=== PATIENT | female | born 1960 | race Caucasian/White ===

== ENCOUNTER 2020-04-17 08:10 | Day surgery (SDC) | payer OTHER ==
[2020-04-17 08:22] LABS: Urine Appearance CLEAR; Urine Bilirubin NEGATIVE (NEG); Urine Blood NEGATIVE (NEG); Urine Color YELLOW; Urine Glucose NEGATIVE (NEG); Urine Protein NEGATIVE (NEG); Urine Specific Gravity 1.015 (1.005-1.030); Urine Urobilinogen 0.2 mg/dL (0.2-1.0)
[2020-04-17 08:22] LABS: Basophils % 0.5 % (0-1.3); Hematocrit 41.8 % (36.0-45.0); Lymphocytes % 21.7 % (15.3-44.8); RBC Red Blood Cell Count 4.74 M/uL (3.86-4.86)
[2020-04-17] MEDS ORDERED: EPINEPHRINE/PF 1 MG/ML AMP ONE (08:27)
[2020-04-17] MEDS ORDERED: NS 0.9% VIAL 40 ML ONE (08:27)
[2020-04-17] MEDS ORDERED: GENTAMICIN SULF 80 MG/2ML INJ ONE (08:27)
[2020-04-17] MEDS ORDERED: CEFAZOLIN SODIUM 1 GM/VIAL ONE (08:27)
[2020-04-17] MEDS ORDERED: Mastisol Adhesive Liq ONE (08:28)
[2020-04-17] MEDS ORDERED: Ringers Lactate 1,000 ML IV ONE ×4 (08:28→11:01)
[2020-04-17] MEDS ORDERED: NA CHLORIDE 0.9% 2,000 ML ONE (08:28)
[2020-04-17] MEDS ORDERED: LIDOCAINE 1% W/EPI 1:100,000 MDV 20 ML VIAL ONE (08:29)
[2020-04-17] MEDS ORDERED: BACITRACIN 50000 UNIT VIAL ONE (08:29)
[2020-04-17] MEDS ORDERED: CEFAZOLIN/SWI 1gm 1 GM/10 ML SYR ONE (08:33)
[2020-04-17] MEDS ORDERED: SCOPOLAMINE HYDROBROMIDE PATCH TD ONE (08:33)
--- NOTE | 2020-04-17 08:37 | RAD REPORT ---
EXAM DESCRIPTION: RAD - Chest Pa And Lat (2 Views) - 04/17/2020 8:09 am CLINICAL HISTORY: Preop Chest pain. COMPARISON: No comparisons FINDINGS: The lungs are clear. The heart is normal in size. No displaced fractures. IMPRESSION: No acute or concerning finding suspected.
[2020-04-17 08:38] LABS: Urine Microscopic Reflex ORDER UMIC
[2020-04-17 09:00] LABS: Urine Bacteria <20 /HPF (<20); Urine Culture Reflex Order REFLEXED; Urine RBC <5 /HPF (NONE SEEN)
[2020-04-17] MEDS ORDERED: FENTANYL CITR 100 MCG/2 ML ONE ×2 (09:09→14:22)
[2020-04-17] MEDS ORDERED: dexAMETHasone 10 MG/ML VIAL ONE (09:09)
[2020-04-17] MEDS ORDERED: propofoL 200 MG/20 ML VIAL IV ONE (09:09)
[2020-04-17] MEDS ORDERED: MIDAZOLAM HCL 2 MG/2 ML INJ ONE (09:09)
[2020-04-17] MEDS ORDERED: KETOROLAC 30 MG/ML INJ ONE (09:10)
[2020-04-17] MEDS ORDERED: ROCURONIUM 50 MG/5 ML VIAL IV ONE (09:10)
[2020-04-17] MEDS ORDERED: ONDANSETRON 4 MG/2 ML VIAL ONE (09:10)
[2020-04-17] MEDS ORDERED: LIDOCAINE 2% MPF 5 ML VIAL ONE (09:10)
[2020-04-17] MEDS ORDERED: LIDOCAINE 1% W/EPI 1:100,000 MDV 50 ML VIAL ONE (09:12)
--- NOTE | 2020-04-17 11:51 | EKG ---
Test Date: 2020-04-17 Test Time: 06:46:56 Physics And Astronomy Professor: SHRUTHI MEASUREMENT RESULTS: Intervals: Rate: 53 WV: 148 QRSD: 86 QT: 432 QTc: 405 [place]: P: 47 WV: 148 QRS: 66 T: 56 INTERPRETIVE STATEMENTS: Sinus bradycardia Otherwise normal ECG No previous ECG available for comparison Electronically Signed On 04-17-20 11:50:07 CDT by Shiva Sharpe
[2020-04-17] MEDS ORDERED: NS 0.9% VIAL 20 ML ONE (11:56)
[2020-04-17] MEDS ORDERED: VECURONIUM 10 MG/VIAL IV ONE (11:56)
[2020-04-17] MEDS ORDERED: MEPERIDINE HCL 25 MG/ML SYR ONE (12:02)
[2020-04-17] MEDS ORDERED: GLYCOPYRROLATE 0.2 MG/ML SYR ONE (13:49)
[2020-04-17] MEDS ORDERED: NEOSTIGMINE 1 MG/ML -5 ML ONE (13:54)
[2020-04-17] MEDS: HYDROMORPHONE HCL 1 MG/ML INJ ONE ×2 (15:20→15:25)
[2020-04-17] MEDS ORDERED: PROMETHAZINE INJ 25 MG/ML AMP ONE (15:24)
[2020-04-17 15:49] VITALS: TEMP 97.9
[2020-04-17] MEDS ORDERED: CODEINE 30MG/APAP 300MG TAB ONE (17:27)
[2020-04-17 17:41] VITALS: BP 131/58; O2SAT 94
--- NOTE | 2020-04-20 05:53 | OP ---
Surgeon: Aleksandr Foster MD Carpentry Professional: Vijay. Preoperative Diagnosis: Breast descent, lipodystrophy of abdomen and flanks, and breast enlargement. Postoperative Diagnosis: Breast descent, lipodystrophy of abdomen and flanks, and breast enlargement. Procedure Performed: Tumescent liposuction, 1850 in, 600 out, breast lift and reduction 330 g right, 290 g left. Anesthesia: General. Procedure In Detail: After induction of general anesthesia, the chest was prepped with DuraPrep, dry sterile drapes applied in the usual manner. A 45 mm template was used to outline the right and left areolas and then a transverse curvilinear incisions were made. Intervening skin was de-epithelialized with dermabrader or Epicut. Then transverse incision was deepened with electrocautery. Flaps were elevated to 1.2 cm thickness towards the sternum, clavicle, anterior axillary line on both sides simultaneously. Then the inferior_ incision was made and then the de-epithelialized tissue itself formed into a cone. This was done with 2-0 PDS suture. However, prior to conization, lateral cephalad breast excess was removed. 2-0 PDS was then used for the cone. Straps were elevated for the right breast at 12 o'clock, 1:30, and 3 o'clock position. The straps were woven in and out the pectoralis muscle back to the base of the cone back to pectoralis muscle back to base of cone was done for the 12 o'clock and 1:30 strap. The 3 o'clock strap was sewn over the sternum at 3 o'clock position with 2-0 Ethibond sutures. Left side was done in mirror-image manner. Patient's wounds were typically stapled shut. Sat up. Dog ears were marked out and then the skin and fat were resected as needed. Wound was irrigated with antibiotic solution. A 10 JOB was brought out the axilla, sewn in place with 2-0 silk. Layered closure consisted of 3-0 Vicryl subcu, 3-0 PDS running subcuticular; tied from medial to lateral and lateral to medial, tied in the vertical meridian of the breast. This was done on both sides. Patient was sat up. Site for new nipple-areolar complex was marked up. Patient was placed supine. Tissue was cored out with a 45 mm template. Nipple was delivered and sewn in place with 4-0 PDS followed by 4-0 PDS running subcuticular. Attention was turned to the abdomen. The patient was re-prepped, new equipment, new gowns. Infusion was performed using 1850 cc of saline with epinephrine, was done through incision over the supraumbilical and then right and left anterior iliac spine. Infusion was performed then after infusion with a 2 mm cannula, then a 4 mm cannula liposucked the flanks and abdomen. The amount removed was 400 from each flank and 800 from the abdomen. Then the wounds were closed with 4-0 PDS. Tincture of benzoin and Steri-Strips were applied over the breast, then maulage, fluffs, and Nestor wrap. Abdominal binder was placed on the abdomen. Patient tolerated the procedure well and returned to recovery. RAJEEV/ERIK Voice ID: [id number] Report ID: [id number] CHARLY
== END 2020-04-17 18:07 | disposition home or self-care (01) ==
LOC: OR 08:10
PROVIDERS: ATTEND Specialist
PROC: 0J083ZZ Alteration of Abdomen Subcutaneous Tissue and Fascia, Percutaneous Approach (ICD-10-PCS; 2020-04-17)
PROC: 0HSV0ZZ Reposition Bilateral Breast, Open Approach (ICD-10-PCS; principal; 2020-04-17 09:00)
PROC: 0J073ZZ Alteration of Back Subcutaneous Tissue and Fascia, Percutaneous Approach (ICD-10-PCS; 2020-04-17 09:00)
DX: N64.81 Ptosis of breast (principal); N62 Hypertrophy of breast; E88.1 Lipodystrophy, not elsewhere classified; N64.82 Hypoplasia of breast; R00.1 Bradycardia, unspecified; Z01.812 Encounter for preprocedural laboratory examination; Z01.810 Encounter for preprocedural cardiovascular examination; Z01.818 Encounter for other preprocedural examination
CPT/HCPCS: 93005; 87088; 85025; 87086; 36415; 88305; 71046; 19316; 15877; J2704; J0171; J2550; J1580; J2250; J3010 ×2; J1100; J2175; J1170; J2710; J0690 ×2; J7120 ×4; J7030; J2405; 81003; 81015

== ENCOUNTER 2020-10-15 09:03 | Day surgery (SDC) | payer OTHER ==
[2020-10-15 09:12] LABS: Absolute Lymphocytes (CBC) 1.2 K/uL (0.7-4.9); Basophils % 0.9 % (0-1.3); Hematocrit 38.2 % (36.0-45.0); Lymphocytes % 26.7 % (15.3-44.8); MPV 9.2 fL (7.6-11.3); RBC Red Blood Cell Count 4.38 M/uL (3.86-4.86)
[2020-10-15 09:24] LABS: Urine Appearance CLEAR; Urine Bilirubin NEGATIVE (NEG); Urine Blood NEGATIVE (NEG); Urine Color YELLOW; Urine Glucose NEGATIVE (NEG); Urine Microscopic Reflex NO UMIC; Urine Protein NEGATIVE (NEG); Urine Specific Gravity 1.015 (1.005-1.030); Urine Urobilinogen 0.2 mg/dL (0.2-1.0); Urine pH 6.5 (5.0-7.0)
--- NOTE | 2020-10-15 09:58 | RAD REPORT ---
EXAM DESCRIPTION: RAD - Chest Pa And Lat (2 Views) - 10/15/2020 9:02 am CLINICAL HISTORY: pre oppatient pending breast surgery COMPARISON: Two view chest April 2020 TECHNIQUE: Frontal and lateral views of the chest were obtained. FINDINGS: The lungs are clear of focal mass or consolidation. Interstitial pattern matches comparis on. Heart size is normal and central vasculature is within normal limits. No pleural effusion or pne umothorax seen. No acute bone findings seen. Right anterior eighth rib shows central central lucent focus and bony remodeling. This is most likely the sequela of old rib trauma. Prior study does not adequately visualize this rib to allow compariso n. No other rib lesion identifiable. If the patient has additional outside chest imaging, those studi es could be used for comparison. No aortic abnormality. There is asymmetry of the breast soft tissues, diminished on the right. No m astectomy history noted. IMPRESSION: No acute cardiopulmonary process. Right anterior eighth rib finding is most likely remodeling from old trauma. This can be correlated w ith history. The April study does not adequately visualize this area for comparison. An aggressive rib lesion would be unlikely. There are no other rib findings seen. Follow-up can be ob tained as clinical history and clinical concerns warrant.
[2020-10-15] MEDS ORDERED: ONDANSETRON 4 MG/2 ML VIAL ONE ×2 (10:28→16:55)
[2020-10-15] MEDS ORDERED: FENTANYL CITR 250 MCG/5 ML ONE (10:28)
[2020-10-15] MEDS ORDERED: dexAMETHasone 10 MG/ML VIAL ONE (10:28)
[2020-10-15] MEDS ORDERED: propofoL 200 MG/20 ML VIAL IV ONE (10:28)
[2020-10-15] MEDS ORDERED: LIDOCAINE 2% MPF 5 ML VIAL ONE (10:28)
[2020-10-15] MEDS ORDERED: ROCURONIUM 50 MG/5 ML VIAL IV ONE (10:28)
[2020-10-15] MEDS ORDERED: MIDAZOLAM HCL 2 MG/2 ML INJ ONE (10:28)
[2020-10-15] MEDS ORDERED: CEFAZOLIN/SWI 1gm 1 GM/10 ML SYR ONE (10:36)
[2020-10-15] MEDS ORDERED: SCOPOLAMINE HYDROBROMIDE PATCH TD ONE (10:36)
[2020-10-15] MEDS ORDERED: Ringers Lactate 1,000 ML IV ONE ×3 (10:36→14:53)
[2020-10-15] MEDS ORDERED: EPINEPHRINE/PF 1 MG/ML AMP ONE (10:52)
[2020-10-15] MEDS ORDERED: LIDOCAINE 1% W/EPI 1:100,000 MDV 20 ML VIAL ONE ×2 (10:52→11:39)
[2020-10-15] MEDS ORDERED: NA CHLORIDE 0.9% 3,000 ML ONE (10:53)
[2020-10-15] MEDS ORDERED: NS 0.9% VIAL 20 ML ONE (11:39)
[2020-10-15] MEDS ORDERED: LANO/MINERAL OIL/PETRO 3.5 GM ONE (12:17)
[2020-10-15] MEDS ORDERED: GLYCOPYRROLATE 0.2 MG/ML SYR ONE ×2 (12:46→15:45)
[2020-10-15] MEDS ORDERED: EPHEDRINE SULF 50 MG/ML VIAL ONE (14:21)
[2020-10-15] MEDS ORDERED: CEFAZOLIN SODIUM 1 GM/VIAL ONE (14:57)
[2020-10-15] MEDS ORDERED: NEOSTIGMINE 1 MG/ML -5 ML ONE (15:45)
[2020-10-15] MEDS ORDERED: Mastisol Adhesive Liq ONE (16:11)
[2020-10-15] MEDS: HYDROMORPHONE HCL 2 MG/ML inj ONE ×4 (16:36→16:52)
[2020-10-15] MEDS ORDERED: HYDROMORPHONE HCL 1 MG/ML INJ ONE (17:24)
[2020-10-15 17:32] VITALS: O2SAT 95
[2020-10-15 17:51] VITALS: BP 116/74; TEMP 97.6
[2020-10-15] MEDS ORDERED: CODEINE 30MG/APAP 300MG TAB ONE (17:56)
--- NOTE | 2020-10-19 11:47 | OP ---
Surgeon: Aleksandr Foster MD Preoperative Diagnosis: facial rhytides breast asymmetry. Postoperative Diagnosis: same Procedure Performed: Face lift, liposuction of the flanks, fat transfer to the right breast, scar revision of right breast, surgical dressing. Anesthesia: General. Description Of Procedure: After satisfactory induction of general anesthesia, the abdomen was prepped with Betadine in the standing position. Prior to general anesthesia, she was prepped with DuraPrep. Dry sterile drapes were applied in the usual manner. A scalpel was used to make incision above the anterior iliac spine bilaterally. A 2 mm cannula was infused, 350 cc injected into each side of the flank. Then, a 4 mm cannula was used to harvest fat. 350 cc of fluid was taken from each side. The wounds were closed with 4-0 PDS later with Steri-Strips and abdominal binder. Fat was allowed to gravity and attention was turned down to the face. Face lift was done after the face had been infiltrated with 0.5% Xylocaine with epinephrine and then prepped with Betadine. Dry sterile drapes were applied in the usual manner. Preauricular and postauricular incisions were made with scalpel on the right side and then left side, and dissected down to the subcu level. Dissection proceeded toward the lateral canthus, the nasolabial fold, and in the midline of the neck. After right side was done, the left side was done in identical manner. We then returned to the right side. We used forceps and scissors and excised the fat pad and electrocautery was again used for hemostasis. A 7 JOB was brought out posteriorly, sewn in place with 2-0 silk. The excess skin was cut off . rosalia were placed and then closed with a running 4-0 PDS suture preauricular at the hairline and postauricular and then down the hairline. After right side was done, the left side was done in the identical manner. Dressings consisted of Xeroform, Kerlix, and an Nestor wrap. The breast was then prepped with Betadine scrub, Betadine paint, dry sterile drapes applied in the usual manner. A 10 blade was used to incise the old scar and then inferior incision was made approximately 2 cm inferiorly at the 3 o'clock position and tapered toward medial and lateral. then the fat was harvested and was injected. 150 cc of fat were injected using 2 cc aliquot. Then, the wound was closed with 3-0 Vicryl, subcu with 3-0 PDS running subcuticular tied in the vertical meridian of the breast. Dressing consisted of tincture of benzoin and Steri-Strips, and then fluffs and Nestor wrap. The patient tolerated the procedure well and returned to Recovery. DAVIN Voice ID: [id number] Report ID: [id number] CHARLY
== END 2020-10-15 18:14 | disposition home or self-care (01) ==
LOC: OR 09:03
PROVIDERS: ATTEND Specialist
PROC: 0HBT0ZZ Excision of Right Breast, Open Approach (ICD-10-PCS; 2020-10-15)
PROC: 0H0T37Z Alteration of Right Breast with Autologous Tissue Substitute, Percutaneous Approach (ICD-10-PCS; 2020-10-15)
PROC: 0W020ZZ Alteration of Face, Open Approach (ICD-10-PCS; principal; 2020-10-15 11:30)
PROC: 0J083ZZ Alteration of Abdomen Subcutaneous Tissue and Fascia, Percutaneous Approach (ICD-10-PCS; 2020-10-15 11:30)
DX: L98.7 Excessive and redundant skin and subcutaneous tissue (principal); N64.89 Other specified disorders of breast; I10 Essential (primary) hypertension
CPT/HCPCS: 93005; 85025; 36415; 88305; 81003; 71046; 17999; 15877; 11402; 12031; 15771; 15772 ×2; J2704; J0171; J2250; J1170 ×2; J3010; J1100; J2710; J0690 ×2; J7120 ×3; J7030; J2405 ×2